=== PATIENT | male | born 1970 | race Caucasian/White ===

== ENCOUNTER 2024-06-27 06:17 | Day surgery (SDC) | payer OTHER, SELFPAY | END 2024-06-27 14:15 | disposition home or self-care (01) | LOC: GI 06:17 | PROVIDERS: ATTENDING PHYSICIAN Specialist | DX: K51.50 Left sided colitis without complications (principal); K57.30 Diverticulosis of large intestine without perforation or abscess without bleeding; K56.2 Volvulus | CPT/HCPCS: 45380; 88305 ==